=== PATIENT | female | born 1950 | race Caucasian/White ===

== ENCOUNTER 2016-07-04 10:40 | Emergency (ER) | payer OTHER ==
[~2016-07-04] VITALS: Ht 157.5 cm; Wt 63.5 kg
--- NOTE | 2016-07-04 11:04 | ED GENERAL ADULT ---
History of Present Illness General Chief Complaint: General Adult Stated Complaint: BIBA FOR DIZZINESS, VOMITING Source: patient, family Exam Limitations: no limitations Vital Signs & Intake/Output Vital Signs & Intake/Output Vital Signs Date Time Temp Pulse Resp B/P Pulse O2 O2 Flow FiO2 Ox Delivery Rate 07/04 1226 96.8 72 18 122/76 95 Room Air 07/04 1147 97.6 74 110/74 07/04 1120 Room Air Room Air 07/04 1056 96.9 76 20 126/80 98 Room Air Room Air Allergies Coded Allergies: Penicillins (UNKNOWN 02/20/16) Sulfa (Sulfonamide Antibiotics) (UNKNOWN 02/20/16) Reconcile Medications Levothyroxine Sodium 112 MCG TABLET 1 TAB PO DAILY AC THYROID (Reported) Meclizine HCl 25 MG TABLET 1 TAB PO Q8 PRN dizziness Ondansetron (Zofran Odt) 4 MG TAB.RAPDIS 1 TAB SL TID PRN nausea Triage Note: BIBA FROM HOME, THIS AM STARTED WITH DIZZINESS, THEN STARTED THROWING UP, PT DRY HEAVING IN TRIAGE. Triage Nurses Notes Reviewed? yes HPI: Patient is a 65-year-old female presents complaining of severe dizziness. Symptoms sudden onset approximately 9:30 this morning. Patient was taking down her [place] tree when she stood up quickly and felt sudden onset of spinning sensation and feeling as if she is going to fall over. Numerous episodes of vomiting since onset. Symptoms are moderate at rest, worsened with opening her eyes. Pain is 0 out of 10. Patient denies head injury, headache, chest pain, palpitations, fevers, chills, nasal congestion, tinnitus. (JIMMY HERNANDEZ) Past History Travel History Traveled to [place] past 21 day No Medical History Any Pertinent Medical History? see below for history Neurological: NONE EENT: NONE Cardiovascular: NONE Respiratory: NONE Gastrointestinal: NONE Hepatic: NONE Renal: NONE Musculoskeletal: NONE Psychiatric: NONE Endocrine: hypothyroidism Blood Disorders: NONE Cancer(s): breast cancer, LEFT YARN MAN/Reproductive: NONE Influenza Vaccine: 04/28/08 Surgical History Surgical History: non-contributory Psychosocial History Who do you live with Spouse Services at Home None What is your primary language Albanian Tobacco Use: Never used ETOH Use: denies use Illicit Drug Use: denies illicit drug use Family History Hx Contributory? No (JIMMY HERNANDEZ) Review of Systems Review of Systems Constitutional: Denies: chills, fever. EENTM: Denies: blurred vision, ear pain, nasal congestion. Respiratory: Denies: cough, short of breath. Cardiovascular: Denies: chest pain, palpitations, syncope. GI: Reports: nausea, vomiting. Denies: abdominal pain. Genitourinary: Reports: no symptoms. Musculoskeletal: Denies: back pain, neck pain. Skin: Reports: no symptoms. Neurological/Psychological: Denies: headache, numbness. Hematologic/Endocrine: Denies: bruising, bleeding. Immunologic/Allergic: Denies: splenectomy. (JIMMY HERNANDEZ) Physical Exam Physical Exam General Appearance: alert, awake Head: atraumatic, normal appearance Eyes: Bilateral: normal appearance, PERRL, other (mild horizontal nystagmus). 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 Yes ASA ordered for poss ACS? No-ACS ruled out CVA/TIA Diagnosis: No Severe Sepsis Present: No Septic Shock Present: No (JIMMY HERNANDEZ) Progress Differential Diagnoses I considered the following diagnoses in my evaluation of the patient: BPPV, Mni vertebrobasilar insufficiency, carotid dissection, acute coronary syndrome, arrhythmia, anemia, hypoglycemia Initial ED EKG: normal axis, normal intervals, normal p-waves, normal QRS complex, normal sinus rhythm, nonspecific ST T wave chg Prior EKG: changed (nonspecific st/t wave changes) (JIMMY HERNANDEZ) Plan of Care: Orders Procedure Date/time Status TROPONIN LEVEL 07/04 110 Complete COMPREHENSIVE METABOLIC PANEL 07/04 1102 Complete CBC WITHOUT DIFFERENTIAL 07/04 110 Complete EKG 07/04 1102 Active Laboratory Tests 07/04/16 1110: Anion Gap 15, Estimated GFR > 60, BUN/Creatinine Ratio 27.1 H, Glucose 206 H, Calcium 9.7, Total Bilirubin 0.6, AST 29, ALT 41, Alkaline Phosphatase 71, Troponin I < 0.01, Total Protein 7.3, Albumin 4.6, Globulin 2.7, Albumin/ Globulin Ratio 1.7, CBC w Diff NO MAN DIFF REQ, RBC 5.20, MCV 87.4, MCH 29.5, RDW 12.8, MPV 9.1, Gran % 75.0, Lymphocytes % 17.6 L, Monocytes % 6.7, Eosinophils % 0.2, Basophils % 0.5, Absolute Granulocytes 5.5, Absolute Lymphocytes 1.3, Absolute Monocytes 0.5, Absolute Eosinophils 0, Absolute Basophils 0, PUBS MCHC 33.7 1210: Patient reports improvement of dizziness and nausea. Discussed results of labs with patient. Discussed importance of follow up regarding the elevated blood sugar and of her symptoms. Discussed with Dr. Nguyen. 1230: Patient ambulated well without assistance. Reports feeling "blah", unable to really describe further. Will PO challenge and if tolearting oral intake, appears stable for discharge with close outpatient follow up. 1320: Patient tolerating crackers and juice. Appears consistent with peripheral vertigo. Appears stable for discharge and close outpatient follow up. (JIMMY HERNANDEZ) Departure Departure Disposition: HOME OR SELF CARE Condition: Stable Clinical Impression Primary Impression: Vertigo Secondary Impressions: Hyperglycemia Referrals: ANGULO MAHESH HARDING (PCP/Family) Additional Instructions: Follow-up with your primary care doctor this upcoming week for further evaluation. Call Wednesday for appointment. Return to the emergency department if numbness, weakness, you develop a headache, chest pain, palpitations, or worsening of symptoms. Departure Forms: Customer Survey General Discharge Information Prescriptions: Current Visit Scripts Meclizine HCl 1 TAB PO Q8 PRN dizziness #12 TAB Ondansetron (Zofran Odt) 1 TAB SL TID PRN nausea #10 TAB (JIMMY HERNANDEZ) PA/TEAM LEADER Co-Sign Statement Statement: ED Attending supervision documentation- [X] I saw and evaluated the patient. I have also reviewed all the pertinent lab results and diagnostic results. I agree with the findings and the plan of care as documented in the PA's/TEAM LEADER's documentation. [X] I have reviewed the ED Record and agree with the PA's/TEAM LEADER's documentation. [] Additions or exceptions (if any) to the PAs/TEAM LEADER's note and plan are summarized below: [] (GUS HARDING,EDNA) Critical Care Note Critical Care Note Critical Care Time: non-applicable (JULIETTE HOOD,JIMMY)
[2016-07-04 11:21] LABS: ABSOLUTE BASOPHIL COUNT 0 /CUMM (0.0-0.2); ABSOLUTE EOSINOPHIL COUNT 0 /CUMM (0.0-0.7); ABSOLUTE GRANULOCYTE CT 5.5 /CUMM (1.4-6.5); ABSOLUTE LYMPH COUNT 1.3 /CUMM (1.2-3.4); ABSOLUTE MONOCYTE COUNT 0.5 /CUMM (0.10-0.60); BASOPHIL % 0.5 % (0.0-2.0); EOSINOPHIL % 0.2 % (0-5); HEMATOCRIT 45.4 % (37-47); MEAN CORPUSCULAR HGB 29.5 PG (27.0-31.0); MEAN CORPUSCULAR HGB CONC 33.7 G/DL (33.0-37.0); MEAN CORPUSCULAR VOLUME 87.4 FL (81.0-99.0); MEAN PLATELET VOLUME 9.1 FL (7.4-10.4); PLATELET COUNT 196 /CUMM (130-400); RBC DISTRIBUTION WIDTH 12.8 % (11.5-14.5); WHITE BLOOD CELL COUNT 7.3 /CUMM (4.8-10.8)
[2016-07-04] MEDS ORDERED: LEVOTHYROXINE112 MCG PO (11:47)
[2016-07-04 12:26] VITALS: BP 122/76
[2016-07-04] MEDS ORDERED: ZOFRAN ODT4 M1 SL (12:38)
[2016-07-04] MEDS ORDERED: MECLIZINE HCL25 MG PO (12:38)
== END 2016-07-04 13:43 ==
LOC: ERH 10:40
PROVIDERS: Physician Assistant
DX: R42 Dizziness and giddiness (principal); R73.9 Hyperglycemia, unspecified; R11.0 Nausea
CPT/HCPCS: 96361; 96374; 96375; J2405; J2765; J3360